=== PATIENT | male | born 1940 | race Asian ===

== ENCOUNTER 2019-01-16 02:13 | Inpatient (IN) | payer MEDICARE, OTHER ==
[~2019-01-16] VITALS: Ht 172.7 cm; Wt 35.4 kg
--- NOTE | 2019-01-16 02:20 | NUR ---
BIBA FOR C/O SUB STERNAL CP , NON- RADIATING. RATED 4/10. PT WAS PLACED ON A MONITOR ,
[2019-01-16] MEDS ORDERED: BISA10SU61 RC (02:27)
[2019-01-16] MEDS ORDERED: PROHEAL PO (02:27)
[2019-01-16] MEDS ORDERED: APIX2.5T PO (02:27)
[2019-01-16] MEDS ORDERED: ACET325T53 PO (02:27)
[2019-01-16] MEDS ORDERED: NA P133E RC (02:27)
[2019-01-16] MEDS ORDERED: MAGN400O21 PO (02:27)
[2019-01-16] MEDS ORDERED: MULT-213 PO (02:27)
[2019-01-16] MEDS ORDERED: ACET-2605 PO (02:27)
[2019-01-16] MEDS ORDERED: FERR325T24 PO (02:27)
[2019-01-16] MEDS ORDERED: SENN-168 PO (02:27)
[2019-01-16] MEDS ORDERED: DILTIAZEM HCL 50 MG IV IV ONE ×2 (02:30→03:30)
[2019-01-16] MEDS ORDERED: IV NS 0.9% 500 ML BAG IV ONE (02:30)
[2019-01-16] MEDS ORDERED: DILTIAZEM HCL 25 MG IV ONE (02:35)
[2019-01-16 02:39] LABS: BASOPHILS % (AUTO) 0.3 % (0.0-2.0); EOSINOPHILS % (AUTO) 0.2 % (0.0-6.0); HEMATOCRIT 28 % (39-51); HEMOGLOBIN 9.2 g/dL (13.5-17.5); LYMPHOCYTES % (AUTO) 35.6 % (20.0-44.0); MEAN CORPUSCULAR HGB CONC 33 g/dl (31.0-36.0); MEAN CORPUSCULAR VOLUME 96 fL (80-96); MONOCYTES # (AUTO) 0.5 /CMM (0.1-1.30); MONOCYTES % (AUTO) 4.6 % (2.0-12.0); NEUTROPHILS # (AUTO) 6.6 /CMM (1.8-8.9); NEUTROPHILS % (AUTO) 59.3 % (43.0-81.0); PLATELET COUNT (AUTO) 395 /CMM (150-450); RED BLOOD CELL COUNT(AUTO) 2.89 MIL/uL (4.5-6.0); WHITE BLOOD COUNT (AUTO) 11.2 K/uL (4.3-11.0)
[2019-01-16 02:49] LABS: CALCIUM, SERUM 7.7 mg/dL (8.5-10.1); CARBON DIOXIDE 17 mmol/L (21-32); CHLORIDE 107 mmol/L (98-107); CREATININE 2.3 mg/dL (0.6-1.3); GLUCOSE 166 mg/dL (74-106); POTASSIUM 2.9 mmol/L (3.5-5.1); SODIUM SERUM 141 mmol/L (136-145); UREA NITROGEN, BLOOD 27 mg/dL (7-18)
[2019-01-16 03:04] LABS: ALANINE AMINOTRANSFERASE 8 U/L (12-78); ALBUMIN 1.8 g/dL (3.4-5.0); ALKALINE PHOSPHATASE 108 U/L (46-116); ASPARTATE AMINOTRANSFERASE 18 U/L (15-37); B-TYPE NATRIURETIC PEPTIDE 65688 PG/ML (0-125); BILIRUBIN,DIRECT 0.1 mg/dL (0.0-0.2); BILIRUBIN,TOTAL 0.3 mg/dL (0.2-1.0); TOTAL PROTEIN, SERUM 7.5 g/dL (6.4-8.2)
--- NOTE | 2019-01-16 03:20 | NUR ---
PT W/ C/O SOB. CURRENTLY HOLDING O2 SAT OF 95-96% ON 3LOPM O2 AT HI. MADE AWARE W/ A NEW ORDER FOR BIPAP. RT WAS CALLED.
--- NOTE | 2019-01-16 03:34 | NUR ---
RT AT THE BED SIDE FOR BIPAP
--- NOTE | 2019-01-16 03:55 | NUR ---
PT NON- COMPLIANT WITH THE BIPAP. COMPLAINING THAT IT'S NOT COMFORTABLE AND TOOK IT OFF. THE RISK VS BENEFITS OF KEEPING TH BIPAP ON WERE EXPLAINED TO THE PT. STILL HE DOES NOT WANT IT. PT WAS PLACED BACK ON A NC AT 3LPM AND ON ONGOING MONITORING.
--- NOTE | 2019-01-16 04:28 | NUR ---
Patient is resting comfortably in bed with eyes closed. Easily aroused. VSS
--- NOTE | 2019-01-16 05:43 | NUR ---
pt in bed awake and alert. breathing evenly. O2 at 3 LPM via NC miriam well. no SOB. no c/o CP. VSS. will cont to monitor,
--- NOTE | 2019-01-16 05:49 | NUR ---
called warehouse engineer for tele bed
--- NOTE | 2019-01-16 06:23 | NUR ---
report given to Augustine on third floor for MILAGROS
[2019-01-16] MEDS ORDERED: Z GUARD REMEDY 2 OZ OINT TP PRN (06:30)
[2019-01-16] MEDS ORDERED: POTASSIUM CHLORIDE 20 MEQ TAB.PRT.SR PO ONE (06:30)
[2019-01-16] MEDS ORDERED: ACETAMINOPHEN 325 MG TABLET PO PRN (06:30)
[2019-01-16] MEDS ORDERED: DILTIAZEM HCL 50 MG IV IV PRN (06:30)
[2019-01-16] MEDS ORDERED: MAG HYDROX/AL HYDROX/SIMETH 30 ML UDC PO PRN (06:30)
[2019-01-16] MEDS ORDERED: MAGNESIUM HYDROXIDE 30 ML UDC PO PRN ×2 (06:30)
[2019-01-16] MEDS ORDERED: MORPHINE SULFATE INJ 2 MG/ML DISP.SYRIN IV PRN (06:30)
[2019-01-16] MEDS ORDERED: NA PHOS,M-B/NA PHOS,DI-BA 1 EA ENEMA RC PRN (06:30)
[2019-01-16] MEDS ORDERED: BISACODYL SUPP (10 MG) 10 MG/SUPP.RECT SUPP.RECT RC PRN (06:30)
[2019-01-16] MEDS ORDERED: HYDROCODONE/APAP 5/325MG 1 EACH TABLET PO PRN (06:30)
[2019-01-16] MEDS ORDERED: ONDANSETRON HCL/PF 4 MG/2 ML VIAL IVP PRN (06:30)
--- NOTE | 2019-01-16 06:38 | NUR ---
called lodging house keeper for LOU[facility] bed
--- NOTE | 2019-01-16 06:53 | NUR ---
[facility] BED ASSIGNMENT 116-2
[2019-01-16] MEDS ORDERED: DILTIAZEM HCL 25 MG IV IV PRN (07:02)
--- NOTE | 2019-01-16 07:16 | NUR ---
report given Martha at [facility]
--- NOTE | 2019-01-16 07:23 | NUR ---
dr Mccann at the bed side
--- NOTE | 2019-01-16 08:15 | NUR ---
transferred patient to [facility] via gurney accompanied by RN and emt in no apparent distress noted. Chaya RN at bedside to assume care.
--- NOTE | 2019-01-16 08:45 | NUR ---
RN NOTES RECEIVED PATIENT FROM ER VIA HODAN, PATIENT A/O X4, ABLE TO MAKE NEEDS KNOWN. WITH USE OF ACCESSORY MUSCLE ON BREATHING, WITH SOME COUGH: NON PRODUCTIVE. ON NASAL CANNULA OXYGEN AT 3LPM, SATING 95%. HEART RATE NOTED TO BE ELEVATED AT 121 AT THE MOMENT. PATIENT DENIES ANY KIND OF PAIN. PATIENT TRANSFERRED TO BED, VITAL SIGNS TAKE AND NOTED FOLLOWS BP AT 148/ 68, TEMP AT 98.8. SKIN ASSESSMENT DONE QUICKLY, MANAGER PRICING ATTACHED TO THE PATIENT. IV ACCESS NOTED ON THE LFA G 20: IN PLACE AND INTACT, FLUSHES WELL. PATIENT MADE COMFORTABLE AND WARMTH TO BED. ORIENTED TO UNIT AND USE OF CALL LIGHT, SAFETY MEASURES PUT IN PLACE, HOB ELEVATED, BED LOW AND LOCKED POSITION, CALL LIGHT WITHIN REACH. WILL CONTINUE TO MONITOR PATIENT AND CARRY OUT ADMITTING ORDERS SEASONAL GREENERY BUNDLER AT THE UNIT AT THIS TIME FOR BLOOD DRAW BUT PATIENT REFUSED. RISK AND BENEFITS DISCUSSED WITH THE PATIENT BUT PATIENT STILL REFUSED "I DON'T LIKE, THEY ALREADY GOT A LOT OF BLOOD LAST TIME. DON'T FORCE ME"
[2019-01-16] MEDS ORDERED: ASPIRIN 325 MG TABLET PO SCH (09:00)
[2019-01-16] MEDS ORDERED: IV NS 0.9% 250 ML IV ONE (09:00)
[2019-01-16] MEDS ORDERED: APIXABAN 2.5 MG TABLET PO SCH (09:00)
[2019-01-16] MEDS: POTASSIUM CL. PREMIX PERIPHER. 50 ML IV SCH ×5 (09:02→15:21)
[2019-01-16] MEDS: CARVEDILOL 3.125 MG TABLET PO SCH ×2 (09:02→21:34)
[2019-01-16] MEDS: MULTIVIT W/MINERALS 1 TAB TABLET PO SCH (09:02)
[2019-01-16] MEDS: FERROUS SULFATE (325 MG) 325 MG/TAB TABLET PO SCH (09:02)
--- NOTE | 2019-01-16 09:15 | NUR ---
RN NOTES OLMAN (BRADDISHER STUDENT) FOR HUE CRISOSTOMO AT THE UNIT. INFORMED LATER THAT PATIENT REFUSED BLOOD DRAW
--- NOTE | 2019-01-16 09:45 | NUR ---
RN NOTES RECEIVED ORDERS FRO DR. JAUREGUI, PATIENT ASKED AGAIN IF READY FOR BLOOD DRAW BUT PATIENT STILL REFUSING. REDISCUSSED RISK AND BENEFIT. ALSO INFORMED PATIENT TO LET US KNOW WHEN HE IS READY. I ALSO OFFERED TO DRAW BLOOD MYSELF BUT PATIENT STILL REFUSED
[2019-01-16] MEDS ORDERED: ALBUTEROL FS 2.5 MG/3 ML VIAL.NEB NEB PRN (10:00)
[2019-01-16] MEDS ORDERED: DILTIAZEM HCL 30 MG TABLET PO PRN (10:00)
[2019-01-16] MEDS: FUROSEMIDE 40 MG/4 ML VIAL IV SCH ×3 (10:07→17:58)
--- NOTE | 2019-01-16 10:17 | NUR ---
RN NOTES PATIENT TRANSFERRED TO [facility] ([id number]) BY BED VIA ACLS PROTOCOL. REPORT GIVEN AT BEDSIDE TO DEJAH. PATIENT ASKED ONCE MORE IF HE IS READY FOR BLOOD DRAW BUT HE STILL REFUSES. HANDS OFF
--- NOTE | 2019-01-16 10:30 | NUR ---
tele limnologist: notes received this 78 year old male pt from [facility] unit via bed, pt is awake, a/ox3. no c/o pain or any discomfort. place tele vair=230. oriented to room and surroundings. pt received cardizem po per report this morning. placed pt on airborne isolation to r/o tb. pt refused due labs this morning per report. pt refused skin assessment. iv potassium continued on floor, pt c/o burning sensation, ice pack applied. in no apparent distress noted. will continue to monitor.
[2019-01-16 10:35] VITALS: BP 129/79
[2019-01-16 11:00] VITALS: BP 129/78
[2019-01-16 11:02] LABS: ABG BASE EXCESS -5.3 mmol/L; ABG OXYGEN SATURATION 95.7 % (92.0-98.5); ABG PCO2 19.6 mmHg (35.0-45.0); ABG PH 7.532 (7.350-7.450); ABG PO2 81.2 mmHg (75.0-100.0); AaDO2 95.3 mmHg; COHb 0.2 % (0.5-1.5); MetHb 0.5 % (0.0-1.5); SITE, ABG Right Radial
--- NOTE | 2019-01-16 11:15 | NUR ---
tele financial health counselor: notes abg resulted and showed result to lauren (acnp) with no new order.
[2019-01-16] MEDS: ENSURE ENLIVE 237 ML LIQUID (VANILLA) PO SCH ×2 (11:52→16:31)
[2019-01-16 12:00] VITALS: BP 114/66
--- NOTE | 2019-01-16 12:30 | NUR ---
m/s hemp fiber taker off: cardio consult dr. hewitt and dr. saba at bedside and discussing the need for angiogram, but pt is hesitant and wants to think about it and will not sign the consent at this time. dr. hewitt instructed pt and primary nurse not to eat or drink after midnight and will call in the morning to f/u. pt verbalized understanding. potassium chloride 10meq ivpb infusing slow rate due to c/o burning sensation to site despite ice pack in place. instructed to call for assistance. will continue to monitor.
[2019-01-16 13:08] LABS: IRON, SERUM 58 ug/dl (50-175); TOTAL IRON BINDING CAPACITY 151 ug/dl (250-450)
[2019-01-16 13:23] LABS: MAGNESIUM 1.4 mg/dL (1.8-2.4); PHOSPHORUS 5.2 mg/dL (2.5-4.9)
[2019-01-16 13:36] LABS: CHOLESTEROL 102 mg/dL (<200); FERRITIN 517 ng/mL (8-388); HDL CHOLESTEROL 39 mg/dL (40-60); LDL 61 mg/dL (0-99); TRIGLYCERIDES 82 mg/dL (30-150)
--- NOTE | 2019-01-16 14:10 | NUR ---
tele loop cutter: notes lab called re: troponin result=0.916. result trending down. pt resting comfortable. will continue to monitor. Addendum: 01/16/19 at 1457 by DEJAH MCCORD METROLOGY ENGINEER tele afib controlled 90's at this time. will monitor.
[2019-01-16 15:16] LABS: THYROID STIMULATING HORMONE < 0.007 uIU/mL (0.358-3.74)
--- NOTE | 2019-01-16 15:21 | NUR ---
tele steam brush operator: notes #5 potassium chloride ivpb given by rn at this time. instructed to call for assistance. will continue to monitor.
[2019-01-16] MEDS ORDERED: POTASSIUM CL. PREMIX PERIPHER. 50 ML IV SCH (15:30)
[2019-01-16] MEDS ORDERED: POTASSIUM CHLORIDE 10 MEQ/50 ML PREMIXED IVPB FOR PERIPHERAL LINE IV ONE (15:30)
[2019-01-16 16:00] VITALS: BP 97/62
--- NOTE | 2019-01-16 16:00 | NUR ---
tele liability claims adjuster: notes pt refused pm care when staff offered. pt also refused linen change. airborne isolation precaution maintained. instructed to call for assistance.
[2019-01-16] MEDS: DILTIAZEM HCL 30 MG TABLET PO PRN (16:31)
--- NOTE | 2019-01-16 18:10 | NUR ---
tele formulation technician: notes troponin trending down= 0.797 at this time. remains on airborne isolation r/o tb. needs attended. instructed to call for assistance. will continue to monitor.
--- NOTE | 2019-01-16 19:05 | NUR ---
tele almond paste molder: notes bedside report given to jordy (arcelia) for continuity of care.
[2019-01-16 20:00] VITALS: BP_SYST 102
--- NOTE | 2019-01-16 20:00 | NUR ---
DRILL PRESS TENDER OPENING NOTES RECEIVED PT IN BED, AWAKE ALERT ORIENTED X4. BREATHING EVEN AND UNLABORED ON ROOM AIR. REMAINS UNDER AIRBORNE ISOLATION TO R/O TB. ROTARY ADJUSTER IN PLACE NO COMPLAINT OF PAIN OR DISCOMFORT AT THIS TIME. IV ACCESS ON THE L FA 20G. BED IN LOWEST LOCKED POSITION, CALL LIGHT WITHIN REACH AT ALL TIMES. WILL CONTINUE TO MONITOR FREQUENTLY
[2019-01-16] MEDS: SENNOSIDES 8.6 MG TABLET PO SCH (21:34)
[2019-01-16] MEDS: ATORVASTATIN 10 MG TABLET PO SCH (21:34)
[2019-01-17] MEDS: DILTIAZEM HCL 30 MG TABLET PO PRN (03:58)
[2019-01-17 04:00] VITALS: BP 147/108
--- NOTE | 2019-01-17 06:02 | NUR ---
MARITIME ENGINEER CLOSING NOTES PT REMAINS IN BED, SLEEPING, EASILY AROUSED TO NAME CALL. REFUSED LAB DRAW. PHLEB TO TRY AGAIN LATER. BREATHING EVEN AND UNLABORED ON ROOM AIR. REMAINS UNDER AIRBORNE ISOLATION TO R/O TB. COMPUTER SCIENCE PROFESSOR IN PLACE SR IN THE 110s NO COMPLAINT OF PAIN OR DISCOMFORT AT THIS TIME. IV ACCESS ON THE L FA 20G. BED IN LOWEST LOCKED POSITION, CALL LIGHT WITHIN REACH AT ALL TIMES. WILL ENDORSE TO DAY NURSE FOR MILAGROS
--- NOTE | 2019-01-17 07:20 | NUR ---
RN OPENING NOTES REPORT RECEIVED FROM HEEL PACKER RN. PT IS ASLEEP IN BED. EQUAL CHEST RISE AND FALL BILATERALLY. BED IS LOCKED AND IN LOWEST POSITION. PT DENIES PAIN AT PRESENT MOMENT WILL CONTINUE TO MONITOR.
[2019-01-17 08:15] VITALS: BP 143/88
[2019-01-17] MEDS: FERROUS SULFATE (325 MG) 325 MG/TAB TABLET PO SCH (08:47)
[2019-01-17] MEDS: CARVEDILOL 12.5 MG TABLET PO SCH ×2 (08:47→21:29)
[2019-01-17] MEDS: MULTIVIT W/MINERALS 1 TAB TABLET PO SCH (08:48)
[2019-01-17] MEDS: ASPIRIN EC 81 MG TABLET.DR PO SCH (08:48)
[2019-01-17] MEDS: APIXABAN 2.5 MG TABLET PO SCH ×2 (08:49→16:23)
[2019-01-17] MEDS: ENSURE ENLIVE 237 ML LIQUID (VANILLA) PO SCH ×3 (08:53→16:22)
[2019-01-17] MEDS ORDERED: APIXABAN 5 MG TABLET PO SCH (09:00)
--- NOTE | 2019-01-17 10:17 | NUR ---
PT REFUSING TESTS STATES HE DOES NOT WANT TO DO IT AND REFUSES TO GIVE AN ANSWER.
[2019-01-17] MEDS: METHIMAZOLE (5MG) 5 MG TABLET PO SCH (11:00)
[2019-01-17 11:06] LABS: *SPE A/G RATIO 0.5 (0.7-1.7); *SPE ALBUMIN 2.1 g/dL (2.9-4.4); *SPE ALPHA-1-GLOBULIN 0.3 g/dL (0.0-0.4); *SPE ALPHA-2-GLOBULIN 0.9 g/dL (0.4-1.0); *SPE GLOBULIN, TOTAL 3.9 g/dL (2.2-3.9); *SPE M-SPIKE Not Observed g/dL (Not Observed); *SPEGAMMA GLOBULIN 1.8 g/dL (0.4-1.8)
[2019-01-17 12:00] VITALS: BP 117/62
--- NOTE | 2019-01-17 15:50 | NUR ---
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
[2019-01-17 16:00] VITALS: BP_SYST 121; BP_SYST 140; BP_DIAS 68; BP_DIAS 69
[2019-01-17 16:51] LABS: BASOPHILS % (AUTO) 0.2 % (0.0-2.0); HEMATOCRIT 26 % (39-51); HEMOGLOBIN 8.8 g/dL (13.5-17.5); LYMPHOCYTES # (AUTO) 1.9 /CMM (0.8-4.8); LYMPHOCYTES % (AUTO) 20.8 % (20.0-44.0); MEAN CORPUSCULAR HGB CONC 34 g/dl (31.0-36.0); MEAN CORPUSCULAR VOLUME 95 fL (80-96); MONOCYTES # (AUTO) 0.5 /CMM (0.1-1.30); MONOCYTES % (AUTO) 5.6 % (2.0-12.0); NEUTROPHILS # (AUTO) 6.8 /CMM (1.8-8.9); NEUTROPHILS % (AUTO) 73.4 % (43.0-81.0); PLATELET COUNT (AUTO) 319 /CMM (150-450); RED BLOOD CELL COUNT(AUTO) 2.71 MIL/uL (4.5-6.0); WHITE BLOOD COUNT (AUTO) 9.2 K/uL (4.3-11.0)
[2019-01-17 17:24] LABS: ALANINE AMINOTRANSFERASE 314 U/L (12-78); ALBUMIN 1.8 g/dL (3.4-5.0); ALKALINE PHOSPHATASE 94 U/L (46-116); ASPARTATE AMINOTRANSFERASE 833 U/L (15-37); BILIRUBIN,TOTAL 0.4 mg/dL (0.2-1.0); CARBON DIOXIDE 18 mmol/L (21-32); CHLORIDE 110 mmol/L (98-107); CREATININE 2.9 mg/dL (0.6-1.3); GLUCOSE 105 mg/dL (74-106); MAGNESIUM 1.7 mg/dL (1.8-2.4); PHOSPHORUS 6.4 mg/dL (2.5-4.9); POTASSIUM 4.4 mmol/L (3.5-5.1); SODIUM SERUM 143 mmol/L (136-145); TOTAL PROTEIN, SERUM 6.7 g/dL (6.4-8.2); UREA NITROGEN, BLOOD 61 mg/dL (7-18)
--- NOTE | 2019-01-17 18:17 | NUR ---
TROPONIN CRITICAL LAB CALLED IN . SPOKE TO DR. MALLORY WHO WENT IN TO SPEAK WITH THE PT ABOUT DOING THE HEART CATH PROCEDURE. PT STILL REFUSING, RISKS EXPLAINED TO PT STILL REFUSING TO DO PROCEDURE. MD PRESENT DURING REFUSAL.
--- NOTE | 2019-01-17 18:29 | NUR ---
PT STILL REFUSING TO EAT DINNER. DRANK HALF OF ENSURE BUT THEN SAID HE DID NOT WANT ANYMORE. PT STATED HE JUST WANTED TO SLEEP.
--- NOTE | 2019-01-17 18:30 | NUR ---
RN CLOSING NOTES PT IS IN BED AWAKE. BED IS IN LOWEST AND LOCKED POSITION WITH CALL LIGHT AT BEDSIDE. PT IS ON ISOLATION FOR POSSIBLE TB BUT DID TEST POSITIVE FOR MRSA OF NARES. PT IS A&OX3 AND IS A-FIB ON MONITOR 80S. PT IS REFUSING TO EAT MEALS AND REFUSING PROCEDURES. PT WAS MADE AWARE OF RISKS BY MD, STILL REFUSES. WILL ENDORSE CONTINUATION OF CARE TO TECHNICAL SUPPORT PROFESSIONAL RN.
--- NOTE | 2019-01-17 19:08 | NUR ---
PATIENT SUPPORT SPECIALIST NOTE RECEIVED PT IN STABLE CONDITION A/O X3, CURRENTLY IN BED RESTING. NO SIGNS OF SOB OR DISTRESS, NO INDICATIONS OF PAIN. TELE MONITOR READING A.FIB 66. IV IN L FA #[address] S/L. ALL CURRENT NEEDS ATTENDED TO. BED LOW, LOCKED, UPPER RAILS UP, AND CALL LIGHT WITHIN REACH. WILL CONT. TO MONITOR.
--- NOTE | 2019-01-17 20:00 | NUR ---
HOT PIPE GAUGER NOTE PT REFUSING 2000 VITALS, WILL TRY AGAIN IN 1 HR.
[2019-01-17 20:21] LABS: CREATINE KINASE, TOTAL 349 U/L (39-308)
[2019-01-17 20:22] LABS: THYROID STIMULATING HORMONE < 0.007 uIU/mL (0.358-3.74)
[2019-01-17 21:15] LABS: FERRITIN 1107 ng/mL (8-388)
[2019-01-17] MEDS: SENNOSIDES 8.6 MG TABLET PO SCH (21:28)
[2019-01-17] MEDS: MIRTAZAPINE 15 MG TABLET PO SCH (21:28)
[2019-01-17] MEDS: ATORVASTATIN 10 MG TABLET PO SCH (21:28)
[2019-01-17] MEDS: MUPIROCIN OINT 2% 22 GM TUBE SCH (21:39)
[2019-01-18] VITALS: BP 107/63
--- NOTE | 2019-01-18 05:11 | NUR ---
CALCIMINER NOTE ATTEMPTED TO CLEAN AND CHANGE PT LINEN. PT IS SCREAMING CURSE WORDS, AND TRYING TO KICK STAFF. PT ALSO DECLINING TELE MONITOR, STATES THAT HE WILL JUST REMOVE THEM WHEN WE LEAVE. WILL LET CHARGE NURSE IMMANUEL KNOW.
--- NOTE | 2019-01-18 06:21 | NUR ---
MS RN NOTE PT REFUSING AM LABS TO BE DRAWN, RISKS AND BENEFITS MADE AWARE. LAB WILL TRY AGAIN LATER.
[2019-01-18 07:06] LABS: *SPE A/G RATIO 0.5 (0.7-1.7); *SPE ALPHA-1-GLOBULIN 0.3 g/dL (0.0-0.4); *SPE ALPHA-2-GLOBULIN 0.8 g/dL (0.4-1.0); *SPE GLOBULIN, TOTAL 3.9 g/dL (2.2-3.9); *SPE M-SPIKE Not Observed g/dL (Not Observed); *SPEGAMMA GLOBULIN 1.8 g/dL (0.4-1.8)
--- NOTE | 2019-01-18 07:11 | NUR ---
BOWLING BALL ASSEMBLER NOTES PATIENT IN BED ALERT ORIENTED X 3. NO ACUTE DISTRESS NOTED. BREATHING UNLABORED. IV ACCESS PATENT AND INTACT, NO REDNESS OR SWELLING NOTED. SAFETY MEASURES IN PLACE. CALL LIGHT WITHIN REACH. WILL CONTINUE TO MONITOR ACCORDINGLY.
[2019-01-18 08:00] VITALS: BP 120/62
[2019-01-18] MEDS: ENSURE ENLIVE 237 ML LIQUID (VANILLA) PO SCH ×3 (09:00→17:14)
[2019-01-18] MEDS: METHIMAZOLE (5MG) 5 MG TABLET PO SCH (09:00)
[2019-01-18] MEDS: CARVEDILOL 12.5 MG TABLET PO SCH ×2 (09:00→21:41)
[2019-01-18] MEDS: APIXABAN 2.5 MG TABLET PO SCH ×2 (09:00→17:14)
[2019-01-18] MEDS: ASPIRIN EC 81 MG TABLET.DR PO SCH (09:00)
[2019-01-18] MEDS: FERROUS SULFATE (325 MG) 325 MG/TAB TABLET PO SCH (09:00)
[2019-01-18] MEDS: MUPIROCIN OINT 2% 22 GM TUBE SCH ×3 (09:00→21:48)
[2019-01-18] MEDS: MULTIVIT W/MINERALS 1 TAB TABLET PO SCH (09:00)
--- NOTE | 2019-01-18 09:00 | NUR ---
ARSON AND BOMB INVESTIGATOR NOTES PATIENT STRONGLY REFUSED TO CLEANED AND LINEN CHANGE AT THIS TIME DESPITE OF EXPLANATION OF RISKS AND BENEFITS.
--- NOTE | 2019-01-18 09:09 | NUR ---
INVESTOR RELATIONS SPECIALIST NOTES SEEN AND EVALUATED BY Adonis Carbajal, patient for cardiac cath patient agreed. Adonis Carbajal with new orders for NPO EXCEPT MEDICATIONS AND HOLD ELIQUIS AND ASPIRIN. NOTED AND CARRIED OUT.
--- NOTE | 2019-01-18 09:15 | NUR ---
INORGANIC CHEMICAL TECHNICIAN NOTED EKG DONE BY RT, RESULT SEEN BY DR CONLEY. NO NEW ORDERS MADE AT THIS TIME.
--- NOTE | 2019-01-18 09:45 | NUR ---
MS RN NOTES PATIENT REFUSED AM MEDICATIONS, MEDICATIONS WASTED.
--- NOTE | 2019-01-18 09:55 | NUR ---
MS RN NOTES PATIENT SEEN BY Ron Smith WANTS EKG REPEATED BY RT.
--- NOTE | 2019-01-18 10:00 | NUR ---
MS RN NOTES FOLLOWED UP WITH RT REGARDING EKG, SAID HE WILL BE HERE JANIE.
--- NOTE | 2019-01-18 11:15 | NUR ---
WOOD CHOPPER NOTES EKG REPEATED BY RT RESULT SEEN BY Adonis Carbajal.
--- NOTE | 2019-01-18 11:20 | NUR ---
LICENSED PHARMACIST NOTES PATIENT SEEN AGAIN BY Adonis Carbajal, patient changed his mind to do cardiac cath despite of explanation of risks and benefits. Aodnis Carbajal with new orders for to resume previous diet cardiac soft and give ELIQUIS AND ASPIRIN. NOTED AND CARRIED OUT.
--- NOTE | 2019-01-18 11:25 | NUR ---
PAVING BLOCK CUTTER NOTES PATIENT REFUSED ELIQUIS AND ASPIRIN DESPITE OF EXPLANATION OF RISKS AND BENEFITS RIRI JOSEPH AWARE.
[2019-01-18 13:30] LABS: BASOPHILS % (AUTO) 0.1 % (0.0-2.0); EOSINOPHILS % (AUTO) 0.1 % (0.0-6.0); HEMATOCRIT 31 % (39-51); HEMOGLOBIN 10.5 g/dL (13.5-17.5); LYMPHOCYTES # (AUTO) 1.7 /CMM (0.8-4.8); LYMPHOCYTES % (AUTO) 16.3 % (20.0-44.0); MEAN CORPUSCULAR HGB CONC 34 g/dl (31.0-36.0); MEAN CORPUSCULAR VOLUME 96 fL (80-96); MONOCYTES # (AUTO) 0.6 /CMM (0.1-1.30); MONOCYTES % (AUTO) 5.4 % (2.0-12.0); NEUTROPHILS % (AUTO) 78.1 % (43.0-81.0); PLATELET COUNT (AUTO) 363 /CMM (150-450); RED BLOOD CELL COUNT(AUTO) 3.28 MIL/uL (4.5-6.0); WHITE BLOOD COUNT (AUTO) 10.3 K/uL (4.3-11.0)
[2019-01-18 13:41] LABS: CALCIUM, SERUM 7.9 mg/dL (8.5-10.1); CARBON DIOXIDE 19 mmol/L (21-32); CHLORIDE 110 mmol/L (98-107); CREATININE 3.4 mg/dL (0.6-1.3); GLUCOSE 119 mg/dL (74-106); POTASSIUM 4.9 mmol/L (3.5-5.1); SODIUM SERUM 142 mmol/L (136-145)
[2019-01-18 14:07] LABS: PTH, INTACT 87 pg/mL (15-65)
[2019-01-18 14:07] LABS: MAGNESIUM 1.8 mg/dL (1.8-2.4)
[2019-01-18 14:16] LABS: UREA NITROGEN, BLOOD 86 mg/dL (7-18)
--- NOTE | 2019-01-18 14:20 | NUR ---
FLASK CLEANER NOTES RECEIVED CRITICAL LABORATORY RESULTS, BUN 86, TROPONIN 12.452, NOTIFIED DR SUELLEN CRISOSTOMO DNP , NO NEW ORDERS MADE AT THIS TIME.
[2019-01-18 15:45] VITALS: BP 111/51
--- NOTE | 2019-01-18 18:50 | NUR ---
Patient was combative and refused echocardiogram. Informed attending RN (Marya).
--- NOTE | 2019-01-18 19:00 | NUR ---
CONTINUOUS IMPROVEMENT CONSULTANT NOTES PATIENT IN BED ALERT ORIENTED X 3. NO ACUTE DISTRESS NOTED. BREATHING UNLABORED. IV ACCESS PATENT AND INTACT, NO REDNESS OR SWELLING NOTED. PATIENT REFUSED TO BE CLEANED AND LINEN CHANGED IN AM BUT AGREED IN THE AFTERNOON. SAFETY MEASURES IN PLACE. CALL LIGHT WITHIN REACH. WILL ENDORSE TO NIGHT NURSE FOR CONTINUITY OF CARE.
--- NOTE | 2019-01-18 19:15 | NUR ---
BICYCLE MECHANIC NOTES RECEIVED PT IN BED AND AWAKE. PT A/O X2-3. RESPIRATIONS EVEN AND UNLABORED WITH NO S/S OF ACUTE DISTRESS OR SOB NOTED. IV ACCESS PATENT AND INTACT, NO REDNESS OR SWELLING NOTED AND SL. SAFETY MEASURES IN PLACE WITH BED IN LOWEST LOCKED POSITION WITH SIDE RAILS UP X2. CALL LIGHT WITHIN REACH. WILL CONTINUE TO MONITOR.
[2019-01-18 20:00] VITALS: BP 132/87
[2019-01-18] MEDS: MIRTAZAPINE 15 MG TABLET PO SCH (21:41)
[2019-01-18] MEDS: SENNOSIDES 8.6 MG TABLET PO SCH (21:41)
--- NOTE | 2019-01-19 05:47 | NUR ---
HEEL SLUGGER NOTES PT REFUSED MORNING LABS. LAB WILL SEND ANOTHER TECH TO RETRY LAB DRAW.
--- NOTE | 2019-01-19 06:17 | NUR ---
RT NOTE EKG ATTEMPTED. PATIENT NONCOMPLIANT. RN AWARE.
--- NOTE | 2019-01-19 07:35 | NUR ---
READING AIDE OPENING NOTES RECEIVED PT AWAKE IN BED IN NO ACUTE SIGNS OF DISTRESS. A/O X 2-3. VERBALLY RESPONSIVE, DENIES PAIN OR ANY DISCOMFORTS AT THIS TIME. ISOLATION PRECAUTIONS MAINTAINED. ON ROOM AIR, BREATHING EVEN AND UNLABORED. PT REFUSED TELEMONITORING DESPITE EXPLAINING RISKS AND BENEFITS. NO IV ACCESS NOTED, PT REFUSED TO INSERT ONE. SAFETY MEASURES IN PLACE. BED IN LOW LOCKED POSITION WITH SR UP X2. CALL LIGHT WITHIN REACH. WILL CONTINUE TO MONITOR ACCORDINGLY.
--- NOTE | 2019-01-19 08:06 | NUR ---
SOLUTIONS ENGINEER NOTES PT IN BED AND AWAKE. PT A/O X2-3. RESPIRATIONS EVEN AND UNLABORED WITH NO S/S OF ACUTE DISTRESS OR SOB NOTED THROUGHOUT SHIFT. SAFETY MEASURES IN PLACE WITH BED IN LOWEST LOCKED POSITION WITH SIDE RAILS UP X2. CALL LIGHT WITHIN REACH. WILL ENDORSE TO ONCOMING NURSE FOR MILAGROS.
[2019-01-19 08:36] VITALS: BP 105/63
[2019-01-19] MEDS: ENSURE ENLIVE 237 ML LIQUID (VANILLA) PO SCH ×3 (08:55→17:10)
[2019-01-19] MEDS: MULTIVIT W/MINERALS 1 TAB TABLET PO SCH (08:55)
[2019-01-19] MEDS: FERROUS SULFATE (325 MG) 325 MG/TAB TABLET PO SCH (08:55)
[2019-01-19] MEDS: METHIMAZOLE (5MG) 5 MG TABLET PO SCH (08:56)
[2019-01-19] MEDS: ASPIRIN EC 81 MG TABLET.DR PO SCH (08:56)
[2019-01-19] MEDS: CARVEDILOL 12.5 MG TABLET PO SCH ×2 (09:00→23:16)
[2019-01-19] MEDS: MUPIROCIN OINT 2% 22 GM TUBE SCH ×3 (09:04→23:18)
--- NOTE | 2019-01-19 10:27 | NUR ---
RN NOTES PT SEEN BY DR CRISOSTOMO. INFORMED THAT PT REFUSED TELEMONITORING, BLOOD WORKS AND TO INSERT NEW IV ACCESS LINE. WILL CONTINUE TO MONITOR.
--- NOTE | 2019-01-19 10:38 | NUR ---
RN NOTES PT SEEN AND EVALUATED BY CORE FITTER WITH RECOMMENDATION TO CHANGE DIET FROM CARDIAC TO REGULAR DIET. DR CRISOSTOMO MADE AWARE IN AGREEMENT. WILL CONTINUE TO MONITOR.
--- NOTE | 2019-01-19 11:52 | NUR ---
WOUND CARE CONSULT: RECEIVED WOUND CONSULT FOR ABRASION TO LEFT BUTTOCK. PT ADAMANTLY REFUSED SKIN ASSESSMENT AND YELLED " DO NOT TOUCH ME. YOU CANNOT FORCE ME". REVIEWED PHOTO DOCUMENTATION WITH NURSING STAFF. RECOMMENDATIONS MADE FOR WOUND CARE BASED ON PHOTO AND NURSING DOCUMENTATION. WILL SEE PRN. DIAZ IN AGREEMENT WITH PLAN OF CARE.
--- NOTE | 2019-01-19 12:00 | NUR ---
RN NOTES WOUND NURSE BRANDON CAME TO ASSESS PT'S SKIN BUT PT REFUSED SKIN ASSESSMENT AND YELLED " DON'T TOUCH ME AND DON'T' FORCE ME". WOUND CARE RECOMMENDATION DONE BY BRANDON. WILL CONTINUE TO MONITOR.
--- NOTE | 2019-01-19 13:27 | NUR ---
HAILEY contacted Baljit at [facility] to inquire if pt. has any family. Per Baljit, pt. is self responsible. Only contact he had was of a friend Blake . Addendum: 01/19/19 at 1330 by AUGUSTO HART HAILEY updated Dr. Durham with aforementioned information.
--- NOTE | 2019-01-19 14:12 | NUR ---
RN NOTES PT SEEN BY DR CALDERON WITH ORDER TO DO U/S GUIDED THORACENTESIS OF RIGHT LUNG. PROCEDURE EXPLAINED TO PT AND VERBALIZED UNDERSTANDING. CONSENT SIGNED AND FILED IN CHART. WILL CONTINUE TO MONITOR.
--- NOTE | 2019-01-19 15:04 | NUR ---
RN NOTES RECEIVED CALL FROM Yo AND INFORMED THAT PT HAS HIGH LEVEL CK MP 34.4. DR CRISOSTOMO MADE AWRE. NO NEW ORDER MADE AT THIS TIME.
[2019-01-19 15:32] VITALS: BP 123/67
--- NOTE | 2019-01-19 18:34 | NUR ---
MS RN CLOSING NOTES PT IN BED AWAKE AND RESTING AT MODERATE HIGH BACKREST POSITION. A/O X 2-3 AND VERBALLY RESPONSIVE. ISOLATION PRECAUTIONS MAINTAINED. ON ROOM AIR, TOLERATING WELL WITH NO SOB NOTED. PT REMAINS REFUSING TO INSERT IV ACCESS, AWARE. PT FOR U/S GUIDED THORACENTESIS TOMORROW, CONSENT IN THE CHART. ALL SAFETY MEASURES KEPT IN PLACE. BED IN LOW LOCKED POSITION WITH SR UP X2. CALL LIGHT WITHIN EASY REACH OF PT. WILL ENDORSE TO ORACLE SQL DEVELOPER NURSE FOR MILAGROS
--- NOTE | 2019-01-19 19:45 | NUR ---
MS RN OPENING NOTES RECEIVED PATIENT IN BED AWAKE AND RESTING AT MODERATE HIGH BACKREST POSITION. A/O X 2-3 AND VERBALLY RESPONSIVE. ISOLATION PRECAUTIONS MAINTAINED. ON ROOM AIR, TOLERATING WELL WITH NO SOB NOTED. COOPERATIVE AT THIS TIME.PT FOR U/S GUIDED THORACENTESIS TOMORROW, CONSENT IN THE CHART. ENDORSED BY AM NURSE,ALL SAFETY MEASURES KEPT IN PLACE. BED IN LOW LOCKED POSITION WITH SR UP X2. CALL LIGHT WITHIN EASY REACH OF PT. WILL CONTINUE TO MONITOR ACCORDINGLY.
[2019-01-19 23:00] VITALS: BP 127/71
[2019-01-19] MEDS: MIRTAZAPINE 15 MG TABLET PO SCH (23:16)
[2019-01-19] MEDS: SENNOSIDES 8.6 MG TABLET PO SCH (23:16)
[2019-01-20 06:29] LABS: BASOPHILS % (AUTO) 0.2 % (0.0-2.0); EOSINOPHILS % (AUTO) 0.6 % (0.0-6.0); HEMATOCRIT 31 % (39-51); HEMOGLOBIN 10.1 g/dL (13.5-17.5); LYMPHOCYTES % (AUTO) 24.6 % (20.0-44.0); MEAN CORPUSCULAR HGB CONC 33 g/dl (31.0-36.0); MEAN CORPUSCULAR VOLUME 97 fL (80-96); MONOCYTES # (AUTO) 0.9 /CMM (0.1-1.30); MONOCYTES % (AUTO) 11.2 % (2.0-12.0); NEUTROPHILS # (AUTO) 5.2 /CMM (1.8-8.9); NEUTROPHILS % (AUTO) 63.4 % (43.0-81.0); PLATELET COUNT (AUTO) 313 /CMM (150-450); RED BLOOD CELL COUNT(AUTO) 3.15 MIL/uL (4.5-6.0); WHITE BLOOD COUNT (AUTO) 8.2 K/uL (4.3-11.0)
[2019-01-20 06:53] LABS: ALANINE AMINOTRANSFERASE 138 U/L (12-78); ALBUMIN 1.9 g/dL (3.4-5.0); ALKALINE PHOSPHATASE 97 U/L (46-116); ASPARTATE AMINOTRANSFERASE 102 U/L (15-37); BILIRUBIN,TOTAL 0.4 mg/dL (0.2-1.0); CALCIUM, SERUM 7.8 mg/dL (8.5-10.1); CARBON DIOXIDE 20 mmol/L (21-32); CHLORIDE 113 mmol/L (98-107); CREATININE 2.7 mg/dL (0.6-1.3); GLUCOSE 109 mg/dL (74-106); POTASSIUM 5.2 mmol/L (3.5-5.1); SODIUM SERUM 146 mmol/L (136-145); TOTAL PROTEIN, SERUM 6.9 g/dL (6.4-8.2)
[2019-01-20 06:54] LABS: UREA NITROGEN, BLOOD 90 mg/dL (7-18)
--- NOTE | 2019-01-20 07:23 | NUR ---
MS RN CLOSING NOTES PATIENT AWAKE IN BED RESTING AT MODERATE HIGH BACKREST POSITION. ALERT ORIENTED X 2-3 AND VERBALLY RESPONSIVE. ISOLATION PRECAUTIONS MAINTAINED. ON ROOM AIR, TOLERATING WELL WITH NO SOB NO APPARENT DISTRESS NOTED, ALL SAFETY MEASURES KEPT IN PLACE. BED IN LOW LOCKED POSITION WITH SR UP X2. CALL LIGHT WITHIN EASY REACH, ALL NEEDS ATTENDED, WILL CONTINUE TO MONITOR ACCORDINGLY.
--- NOTE | 2019-01-20 07:27 | NUR ---
MS RN CLOSING NOTES PATIENT FOR U/S GUIDED THORACENTESIS TODAY, CONSENT IN THE CHART. ALL SAFETY MEASURES KEPT IN PLACE. BED IN LOW LOCKED POSITION WITH SR UP X2. CALL LIGHT WITHIN EASY REACH OF PT. ENDORSED TO AM NURSE FOR CONTINUITY OF CARE.
--- NOTE | 2019-01-20 07:27 | NUR ---
MS RN OPENING NOTE RECEIVED PATIENT SLEEPING IN BED RESTING COMFORTABLY. PATIENT BREATHING ON ROOM AIR. PATIENT IN NO ACUTE DISTRESS. NO SOB NOTED. PATIENT BREATHING IS EVEN AND UNLABORED. NO FACIAL GRIMACING NOTED. PATIENT MAINTAINED ON ISOLATION PRECAUTIONS. NO IV ACCESS NOTED. SAFETY PRECAUTIONS IN PLACE. PATIENT BED IS LOCKED AND IN LOWEST POSITION. CALL LIGHT WITHIN REACH. WILL CONTINUE TO MONITOR.
[2019-01-20 08:00] VITALS: BP 130/77
--- NOTE | 2019-01-20 08:45 | NUR ---
MS RN NOTE PATIENT CRITICAL LAB VALUE LEVEL 90 BUN. NO CALL BACK FROM LAB. SUELLEN CRISOSTOMO MADE AWARE. NO NEW ORDERS AT THIS TIME. WILL CONTINUE TO MONITOR.
[2019-01-20] MEDS: FERROUS SULFATE (325 MG) 325 MG/TAB TABLET PO SCH (09:00)
[2019-01-20] MEDS: MULTIVIT W/MINERALS 1 TAB TABLET PO SCH (09:00)
[2019-01-20 09:21] VITALS: BP 130/77
[2019-01-20] MEDS: ASPIRIN EC 81 MG TABLET.DR PO SCH (09:21)
[2019-01-20] MEDS: METHIMAZOLE (5MG) 5 MG TABLET PO SCH (09:21)
[2019-01-20] MEDS: CARVEDILOL 12.5 MG TABLET PO SCH (09:21)
[2019-01-20] MEDS: ENSURE ENLIVE 237 ML LIQUID (VANILLA) PO SCH ×2 (09:22→12:34)
--- NOTE | 2019-01-20 09:30 | NUR ---
MS RN NOTE PATIENT REFUSED FERROUS SULFATE AND THERAGRAM. EXPLAINED RISK VS BENEFITS 3X. PATIENT CONTINUED TO REFUSE. WILL CONTINUE TO MONITOR. Addendum: 01/20/19 at 0952 by INGRID DAY RN MADE AWARE.
--- NOTE | 2019-01-20 09:35 | NUR ---
RN NOTE PER SUELLEN CRISOSTOMO, SUELLEN CANCELLED THORACENTESIS. PER SUELLEN, HAD SOMEONE SPEAK TO HIM IN HIS [place] LANGUAGE AND REFUSED TO HAVE THORACENTESIS. Addendum: 01/20/19 at 1001 by INGRID DAY RN RISKS VS BENEFITS WERE EXPLAINED. PATIENT REFUSED.
[2019-01-20] MEDS ORDERED: MIRT15TA PO (09:46)
[2019-01-20 10:03] LABS: APPEARANCE,URINE CLEAR (CLEAR); BILIRUBIN,URINE NEGATIVE (NEGATIVE); BLOOD, URINE 3+ Ery/uL (NEGATIVE); COLOR,URINE YELLOW (YELLOW); KETONES,URINE NEGATIVE (NEGATIVE); LEUKOCYTE ESTERASE ,URINE NEGATIVE (NEGATIVE); NITRITE, URINE NEGATIVE (NEGATIVE); PH,URINE 5.5 (5.0-8.0); PROTEIN,URINE 2+ mg/dl (NEGATIVE); UGLUCOSE NEGATIVE (NEGATIVE); UROBILINOGEN,URINE 0.2 EU/dL (0.2)
[2019-01-20 10:11] LABS: BACTERIA,URINE Rare /HPF (None Seen); RBC,URINE 51-80 /HPF (0-2); SQUAMOUS EPITHELIAL CELL,UR Few /HPF (None Seen); WBC,URINE 0-2 /HPF (0-3)
--- NOTE | 2019-01-20 11:15 | NUR ---
PER RN INGRID, THRACENTESIS WAS CANCELLED BY SUELLEN CRISOSTOMO, PATIENT WANTS TO BE DISCHARGED
--- NOTE | 2019-01-20 17:23 | NUR ---
MS FAMILY SERVICE ASSISTANT NOTE PATIENT MEDICALLY STABLE FOR TRANSFER. PATIENT IN NO ACUTE DISTRESS. NO SOB NOTED. PATIENT DENIES PAIN AT THIS TIME. NO FACIAL GRIMACING NOTED. PATIENT BREATHING IS EVEN AND UNLABORED. PATIENT HAD NO IV ACCESS. ID BAND REMOVED. PATIENT REFUSED TO HAVE SKIN ASSESSED, PATIENT STATED " DONT TOUCH ME, I DONT WANT MY SKIN TO BE ASSESSED". DC INSTRUCTIONS PROVIDED, PATIENT VERBALIZED UNDERSTANDING. PATIENT SIGNED BELONGINGS LIST, AND HAS ALL BELONGINGS WITH HIM. PATIENT GOING BACK TO [facility] BY [facility]BULANCE. REPORT GIVEN TO CELINA RUTLEDGE AT [facility]. PATIENT KEPT CLEAN AND DRY. PATIENT REPOSITIONED Q2H MUCH PATIENT WOULD ALLOW. MD AWARE DISCHARGE.
== END 2019-01-20 17:35 | DRG 280 ==
LOC: ER 02:15 → TELE 06:01 → TELE-TD 06:53 → TELE 10:15 → MED 01-19 08:33
PROVIDERS: ADMIT Nurse Practitioner Acute Care; ATTEND Nurse Practitioner Acute Care
DX: I48.91 Unspecified atrial fibrillation (principal); I21.A1 Myocardial infarction type 2; E43 Unspecified severe protein-calorie malnutrition; N17.0 Acute kidney failure with tubular necrosis; I50.41 Acute combined systolic (congestive) and diastolic (congestive) heart failure; I13.0 Hypertensive heart and chronic kidney disease with heart failure and stage 1 through stage 4 chronic kidney disease, or unspecified chronic kidney disease; R64 Cachexia; E87.2 Acidosis; Z68.1 Body mass index [BMI] 19.9 or less, adult; J44.9 Chronic obstructive pulmonary disease, unspecified; N18.9 Chronic kidney disease, unspecified; F29 Unspecified psychosis not due to a substance or known physiological condition; E86.0 Dehydration; D50.9 Iron deficiency anemia, unspecified; E87.6 Hypokalemia; R62.7 Adult failure to thrive; Z87.891 Personal history of nicotine dependence; E88.09 Other disorders of plasma-protein metabolism, not elsewhere classified; D72.829 Elevated white blood cell count, unspecified; D63.1 Anemia in chronic kidney disease; I73.9 Peripheral vascular disease, unspecified; Z91.19 Patient's noncompliance with other medical treatment and regimen; F32.9 Major depressive disorder, single episode, unspecified; M62.50 Muscle wasting and atrophy, not elsewhere classified, unspecified site; I42.9 Cardiomyopathy, unspecified; Z79.01 Long term (current) use of anticoagulants; Z79.82 Long term (current) use of aspirin; I27.20 Pulmonary hypertension, unspecified; E05.90 Thyrotoxicosis, unspecified without thyrotoxic crisis or storm
CPT/HCPCS: 36415; 36600; 71045-TC; 76536-TC; 76770-TC; 80048-TC; 80053-TC; 80061-TC; 80076-TC; 81000-TC; 82378; 82550-TC; 82728-TC; 83540-TC; 83735-TC; 83880; 83970; 84100-TC; 84155; 84165; 84439-TC; 84443-TC; 84481; 84484-TC; 85025-TC; 85730-TC; 86480; 87081-TC; 93307-TC; 93880-TC; G0378; J1940; J3480; J3490; J7040; J7050

== ENCOUNTER 2019-01-26 22:31 | Inpatient (IN) | payer MEDICARE, OTHER ==
[~2019-01-26] VITALS: Ht 165.1 cm; Wt 35.4 kg
[~2019-01-26 22:31] MED LIST: ACET-2605 PO; ACET325T53 PO; APIX2.5T PO; BISA10SU61 RC; FERR325T24 PO; MAGN400O21 PO; MULT-213 PO; NA P133E RC; PROHEAL PO; SENN-168 PO
--- NOTE | 2019-01-26 23:23 | NUR ---
ZEE FROM SNF. TO ER BED 9. AAOX2. NO RESP DISTRESS NOTED. BROUGHT IN ON GURPAXTON C/O POOR ORAL INTAKE AND DEHYDRATION PER PA REPORT. PT DENIES OF ANY PAIN. NO NVD. DENIES CP. MD AT BEDSIDE FOR EVAL. ORDERS RECEIVED NOTED AND CARREID OUT. IV LINE OBTAINED ON R AC20G. BLOOD DRAWN AND GIVEN TO SUPERVISOR INSTRUMENT REPAIR AT BEDSIDE. EKG DOEN BY EMT
[2019-01-26 23:24] LABS: BASOPHILS # (AUTO) 0.1 /CMM (0.0-0.2); BASOPHILS % (AUTO) 0.5 % (0.0-2.0); EOSINOPHILS % (AUTO) 0.3 % (0.0-6.0); HEMATOCRIT 33 % (39-51); HEMOGLOBIN 10.7 g/dL (13.5-17.5); LYMPHOCYTES % (AUTO) 17.5 % (20.0-44.0); MEAN CORPUSCULAR HGB CONC 33 g/dl (31.0-36.0); MEAN CORPUSCULAR VOLUME 100 fL (80-96); MONOCYTES # (AUTO) 0.7 /CMM (0.1-1.30); MONOCYTES % (AUTO) 6.5 % (2.0-12.0); NEUTROPHILS # (AUTO) 8.5 /CMM (1.8-8.9); NEUTROPHILS % (AUTO) 75.2 % (43.0-81.0); PLATELET COUNT (AUTO) 295 /CMM (150-450); RED BLOOD CELL COUNT(AUTO) 3.28 MIL/uL (4.5-6.0); WHITE BLOOD COUNT (AUTO) 11.3 K/uL (4.3-11.0)
[2019-01-26 23:35] LABS: CALCIUM, SERUM 8.5 mg/dL (8.5-10.1); CARBON DIOXIDE 24 mmol/L (21-32); CHLORIDE 117 mmol/L (98-107); CREATININE 2.1 mg/dL (0.6-1.3); GLUCOSE 151 mg/dL (74-106); POTASSIUM 4.2 mmol/L (3.5-5.1); SODIUM SERUM 151 mmol/L (136-145); UREA NITROGEN, BLOOD 38 mg/dL (7-18)
[2019-01-26 23:41] LABS: ALANINE AMINOTRANSFERASE 32 U/L (12-78); ALBUMIN 2.2 g/dL (3.4-5.0); ALKALINE PHOSPHATASE 93 U/L (46-116); ASPARTATE AMINOTRANSFERASE 37 U/L (15-37); BILIRUBIN,DIRECT 0.3 mg/dL (0.0-0.2); BILIRUBIN,TOTAL 0.7 mg/dL (0.2-1.0); TOTAL PROTEIN, SERUM 7.5 g/dL (6.4-8.2)
--- NOTE | 2019-01-26 23:52 | NUR ---
TROPONIN 0.741. LACTIC 2.8. MD AWARE.
[2019-01-27] MEDS ORDERED: IV NS 0.9% 1,000 ML BAG IV ONE
[2019-01-27] MEDS ORDERED: VANCOMYCIN 1 GM in IV D5W 250 ML IV ONE ×2
[2019-01-27] MEDS ORDERED: VANCOMYCIN 1 GM VIAL ONE (00:13)
[2019-01-27] MEDS ORDERED: PIPERACILLIN /TAZOBACTAM 3.375 G VIAL IV ONE (00:14)
[2019-01-27] MEDS: PIPERACILLIN /TAZOBACTAM 2.25 G in IV D5W 50 ML IV ONE (00:24)
[2019-01-27] MEDS ORDERED: PIPERACILLIN /TAZOBACTAM 2.25 G VIAL IV ONE ×2 (00:30→06:03)
--- NOTE | 2019-01-27 01:07 | NUR ---
zosyn 2.25gm taken from [facility]. medication is not available in er
[2019-01-27] MEDS ORDERED: DILTIAZEM HCL 50 MG IV IV ONE ×2 (01:30→02:30)
[2019-01-27] MEDS ORDERED: DILTIAZEM HCL 25 MG IV ONE (01:37)
--- NOTE | 2019-01-27 02:11 | NUR ---
CALLED [facility] FOR RADIOLOGY REPORT
[2019-01-27] MEDS: DILTIAZEM HCL 50 MG IV IV ONE ×2 (02:13→02:27)
--- NOTE | 2019-01-27 02:19 | NUR ---
CALLED RN SUP FOR TELE BED
--- NOTE | 2019-01-27 02:34 | NUR ---
PT URINATED AND SPECIMEN SENT TO LAB
[2019-01-27 02:47] LABS: APPEARANCE,URINE Slightly Cloudy (CLEAR); BILIRUBIN,URINE Negative (NEGATIVE); BLOOD, URINE Large Ery/uL (NEGATIVE); COLOR,URINE Dark (YELLOW); KETONES,URINE Negative (NEGATIVE); LEUKOCYTE ESTERASE ,URINE Negative (NEGATIVE); NITRITE, URINE Negative (NEGATIVE); PH,URINE 5.5 (5.0-8.0); PROTEIN,URINE >=300 mg/dl (NEGATIVE); UGLUCOSE 100 MG/DL mg/dL (NEGATIVE); UROBILINOGEN,URINE 0.2 EU/dL (0.2)
[2019-01-27 02:49] LABS: BACTERIA,URINE None seen /HPF (None Seen); RBC,URINE 51-80 /HPF (0-2); SQUAMOUS EPITHELIAL CELL,UR Few /HPF (None Seen); WBC,URINE 0-2 /HPF (0-3)
--- NOTE | 2019-01-27 02:53 | NUR ---
PT ASSIGNED 115-2
--- NOTE | 2019-01-27 02:59 | NUR ---
CALLED [facility] FOR PANEL ADMISSION, WAITING FOR DR. MONTILLA CALL BACK
--- NOTE | 2019-01-27 03:25 | NUR ---
REPORT GIVEN TO MATY CHIN FOR MILAGROS. PT GOING TO 115
[2019-01-27] MEDS ORDERED: ONDANSETRON HCL/PF 4 MG/2 ML VIAL IVP PRN (04:00)
[2019-01-27] MEDS ORDERED: Z GUARD REMEDY 2 OZ OINT TP PRN (04:00)
[2019-01-27] MEDS ORDERED: HYDROCODONE/APAP 5/325MG 1 EACH TABLET PO PRN (04:00)
[2019-01-27] MEDS ORDERED: MAG HYDROX/AL HYDROX/SIMETH 30 ML UDC PO PRN (04:00)
[2019-01-27] MEDS ORDERED: ZOLPIDEM TARTRATE 5 MG TABLET PO PRN (04:00)
[2019-01-27] MEDS ORDERED: MAGNESIUM HYDROXIDE 30 ML UDC PO PRN (04:00)
[2019-01-27] MEDS ORDERED: ACETAMINOPHEN 325 MG TABLET PO PRN (04:00)
--- NOTE | 2019-01-27 04:15 | NUR ---
PT PULLED OUT HIS IV LINE ON R AC 20G. NEW IV LINE OBTAINED ON L AC 20G.
--- NOTE | 2019-01-27 04:23 | NUR ---
PT TRANSPORTED TO UNIT ON GURNEY WITH 2 RN AT BEDSIDE W/ ACLS PROTOCOL. NAD NOTED DURING TRANSPORT.
[2019-01-27 04:30] VITALS: BP 138/64
--- NOTE | 2019-01-27 04:30 | NUR ---
TITLE CLOSER NOTES Patient came to unit from ER via gurney. Patient is alert, oriented x 1, Breathing even and unlabored. Not in any distress, on room air. Patient is irritable, angry and uncooperative. Patient shouts and curses staff and refused cares. Tele monitor in place- controlled afib. Skin assessment done. Managed to take some pictures but refused most of it to be taken, shouting, leave me alone, do not touch me. Oriented to call light- placed within reach. Bed in lowest loced position with side rails x 3 up and bed alarm on. Will continue to monitor accordingly
[2019-01-27] MEDS ORDERED: PIPERACILLIN /TAZOBACTAM 4.5 G in IV D5W 50 ML IV SCH (06:00)
[2019-01-27] MEDS: DILTIAZEM HCL 30 MG TABLET PO SCH ×4 (06:00→23:29)
[2019-01-27] MEDS: ZOSYN IVPB 2.25 G in IV D5W 50ml IV SCH ×4 (06:21→23:24)
--- NOTE | 2019-01-27 06:40 | NUR ---
VENEER GLUE SPREADER CLOSING NOTES Patient sleeping in bed, comfortable. Breathing even and unlabored. Not in any distress, on room air. IV Zosyn 2.25g currently infusing as ordered. On tele monitor- controlled afib. Safety measures in place, call light within reach, bed in low locked position with side rails x 3 up and bed alarm on. Will endorse MILAGROS to oncoming RN
--- NOTE | 2019-01-27 07:30 | NUR ---
TELE/RN OPENING NOTES RECEIVED PATIENT IN BED SLEEPING COMFORTABLY. EASILY AROUSABLE. PATIENT IS ALERT AND ORIENTED X1. NO PAIN OR ACUTE DISTRESS AT THIS TIME. RESPIRATION EVEN AND UNLABORED. SKIN IS DRY WARM TO TOUCH. NOTED WITH LEFT AC #20G IV ACCESS. INTACT AND PATENT. FLUSHING WELL. NO S/S OF INFECTION OR INFILTRATION. ALL NEEDS ANTICIPATED. CALL LIGHT WITHIN REACHED. SAFETY MAINTAINED. SIDE RAILS X2. BED LOCKED AND IN LOWEST POSITION. WILL CONTINUE TO MONITOR CLOSELY.
[2019-01-27 07:46] LABS: BASOPHILS % (AUTO) 0.2 % (0.0-2.0); EOSINOPHILS % (AUTO) 0.5 % (0.0-6.0); HEMATOCRIT 30 % (39-51); HEMOGLOBIN 9.6 g/dL (13.5-17.5); MEAN CORPUSCULAR HGB CONC 33 g/dl (31.0-36.0); MEAN CORPUSCULAR VOLUME 100 fL (80-96); MONOCYTES # (AUTO) 0.8 /CMM (0.1-1.30); MONOCYTES % (AUTO) 8.1 % (2.0-12.0); NEUTROPHILS # (AUTO) 6.6 /CMM (1.8-8.9); NEUTROPHILS % (AUTO) 70.2 % (43.0-81.0); PLATELET COUNT (AUTO) 232 /CMM (150-450); RED BLOOD CELL COUNT(AUTO) 2.93 MIL/uL (4.5-6.0); WHITE BLOOD COUNT (AUTO) 9.4 K/uL (4.3-11.0)
[2019-01-27 08:00] VITALS: BP 128/72
[2019-01-27 08:05] LABS: ALANINE AMINOTRANSFERASE 27 U/L (12-78); ALBUMIN 2.1 g/dL (3.4-5.0); ALKALINE PHOSPHATASE 83 U/L (46-116); ASPARTATE AMINOTRANSFERASE 29 U/L (15-37); BILIRUBIN,TOTAL 0.7 mg/dL (0.2-1.0); CALCIUM, SERUM 7.7 mg/dL (8.5-10.1); CARBON DIOXIDE 22 mmol/L (21-32); CHLORIDE 119 mmol/L (98-107); CREATININE 1.9 mg/dL (0.6-1.3); GLUCOSE 80 mg/dL (74-106); PHOSPHORUS 2.6 mg/dL (2.5-4.9); SODIUM SERUM 153 mmol/L (136-145); TOTAL PROTEIN, SERUM 6.9 g/dL (6.4-8.2); UREA NITROGEN, BLOOD 35 mg/dL (7-18)
[2019-01-27] MEDS ORDERED: MIRT15TA PO (08:12)
[2019-01-27] MEDS ORDERED: AMIN30LI2 PO (08:12)
[2019-01-27] MEDS ORDERED: FEE PK DOSING 1 MIN EA MC ONE (08:43)
[2019-01-27] MEDS ORDERED: IV NS 0.9% 1,000 ML IV PRN (09:02)
[2019-01-27 12:00] VITALS: BP 130/66
[2019-01-27] MEDS: IV D5W 1,000 ML IV PRN (14:52)
--- NOTE | 2019-01-27 19:23 | NUR ---
MS/RN CLOSING NOTES PATIENT CONTINUES TO REMAIN IN STABLE CONDITION THROUGHOUT THE SHIFT. PROVIDED COMFORT AND SAFETY. PATIENT REMAINS CALM. SITTER AT BEDSIDE. NOTED WITH LEFT HAND #24G IV ACCESS. INTACT AND PATENT. FLUSHING WELL. NO S/S OF INFECTION OR INFILTRATION. ALL NEEDS ANTICIPATED. CALL LIGHT WITHIN REACHED. SAFETY MAINTAINED. SIDE RAILS X2. BED LOCKED AND IN LOWEST POSITION. WILL CONTINUE TO MONITOR CLOSELY. ENDORSED TO PM NURSE FOR MILAGROS.
--- NOTE | 2019-01-27 19:30 | NUR ---
MS RN NOTES, PATIENT IN BED AWAKE WITH RESTRAINS IN PLACED, NO ABNORMALITY AT SITE, NO CIRCULATION OVERPROMISED, PER PROPR RN PATIENT PULLING TUBINGS AND IV CATHETER, AT THIS TIME, PATIENT INTIMIDATING PATIENTS BED 2 FAMILY ASKING THEM TO REMOVE THE RESTRAINS, REDIRECTION OF BEHAVIOR PROVIDED, AND BLOCKER AND CUTTER CONTACT LENS AWARE , NO SITTER AT THIS TIME, LEFT HAND #24G IV ACCESS, INTACT AND PATENT, NO SIGNS OF INFILTRATION NOTED AT SITE, CALL LIGHT WITHIN REACHED, SAFETY MAINTAINED, SIDE RAILS X2 IN PLACED, BED LOCKED AND IN LOWEST POSITION, WILL CONTINUE TO MONITOR CLOSELY.
[2019-01-27 20:00] VITALS: BP 132/54
[2019-01-28] VITALS: BP 121/73
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
--- NOTE | 2019-01-28 00:40 | NUR ---
RN NOTES, CALLED PHARMACY HEALTH EDUCATION AIDE AND SPOKE WITH NENA, INFORMED THAT PATIENT REFUSED VANCOMYCIN THROUGH AT THIS TIME, AND PATIENT HAS VANCOMYCIN MEDICATION TO ADMINISTER AT 0100, PER NENA TO ADMINISTER MEDIATION AT THIS TIME.
[2019-01-28] MEDS ORDERED: VANCOMYCIN 500 MG VIAL ONE (00:44)
[2019-01-28] MEDS: VANCOMYCIN 500 MG in IV D5W 100 ML IV SCH (00:56)
[2019-01-28] MEDS: IV D5W 1,000 ML IV PRN (02:48)
[2019-01-28 04:00] VITALS: BP 131/77
[2019-01-28] MEDS: ZOSYN IVPB 2.25 G in IV D5W 50ml IV SCH ×3 (05:41→17:12)
[2019-01-28] MEDS: DILTIAZEM HCL 30 MG TABLET PO SCH ×4 (05:43→18:00)
--- NOTE | 2019-01-28 06:40 | NUR ---
MS RN NOTES, PATIENT IN BED SLEEPING AT THIS TIME, BUT AROUSES EASILY TO VERBAL/TACTILE STIMULI, NO SIGNIFICANT CHANGE IN CONDITION DURING THE NIGHT, CALL LIGHT WITHIN REACHED, SAFETY MAINTAINED, SIDE RAILS X2 IN PLACED, BED LOCKED AND IN LOWEST POSITION, WILL ENDORSE CONTINUITY OF CARE TO ONCOMING NURSE.
--- NOTE | 2019-01-28 06:51 | NUR ---
RN NOTES, CONTINUE ON BILATERAL SOFT WRIST RESTRAINS, NO CIRCULATION COMPROMISED, NO ABNORMALITY NOTED, FREQUENT CHECKS ORDERED DONE, ENDORSED TO TIFFANY RN FOR CONTINUATION OF CARE.
[2019-01-28 08:00] VITALS: BP_SYST 121; BP_SYST 133; BP_DIAS 102; BP_DIAS 69
--- NOTE | 2019-01-28 09:00 | NUR ---
MS1/RN AM SHIFT INITIAL NOTES RECEIVED PT SLEEP IN BED, EASILY AROUSED, PT A/O X 1, NO ACUTE DISTRESS NOTED BUT PT IS AGITATED AND COMBATIVE. ON ROOM AIR, SATURATING @ 100%, RESPIRATIONS EVEN AND UNLABORED, WITH ON GOING IV INFUSION OF D5W @ 100CC/HR, SITE PATENT WITH NO S/S OF INFECTION. BILATERAL WRIST RESTRAINTS REMOVED TO CHECK FOR CIRCULATION AND COMFORT THEN PLACED BACK. PT REFUSED HIS BREAKFAST, WILL TRY TO CONVINCE LATER. CL WITHIN REACHED AND SAFETY MAINTAINED. ON GOING MONITORING.
[2019-01-28 09:19] LABS: BASOPHILS % (AUTO) 0.4 % (0.0-2.0); EOSINOPHILS % (AUTO) 1.7 % (0.0-6.0); HEMATOCRIT 31 % (39-51); HEMOGLOBIN 10.1 g/dL (13.5-17.5); LYMPHOCYTES # (AUTO) 2.4 /CMM (0.8-4.8); LYMPHOCYTES % (AUTO) 26.9 % (20.0-44.0); MEAN CORPUSCULAR HGB CONC 33 g/dl (31.0-36.0); MEAN CORPUSCULAR VOLUME 101 fL (80-96); MONOCYTES # (AUTO) 0.8 /CMM (0.1-1.30); MONOCYTES % (AUTO) 8.8 % (2.0-12.0); NEUTROPHILS # (AUTO) 5.5 /CMM (1.8-8.9); NEUTROPHILS % (AUTO) 62.2 % (43.0-81.0); PLATELET COUNT (AUTO) 232 /CMM (150-450); RED BLOOD CELL COUNT(AUTO) 3.07 MIL/uL (4.5-6.0); WHITE BLOOD COUNT (AUTO) 8.8 K/uL (4.3-11.0)
[2019-01-28 09:33] LABS: ALANINE AMINOTRANSFERASE 19 U/L (12-78); ALBUMIN 1.8 g/dL (3.4-5.0); ALKALINE PHOSPHATASE 70 U/L (46-116); ASPARTATE AMINOTRANSFERASE 25 U/L (15-37); CALCIUM, SERUM 7.4 mg/dL (8.5-10.1); CARBON DIOXIDE 22 mmol/L (21-32); CHLORIDE 110 mmol/L (98-107); CREATININE 1.9 mg/dL (0.6-1.3); GLUCOSE 114 mg/dL (74-106); MAGNESIUM 1.8 mg/dL (1.8-2.4); PHOSPHORUS 2.4 mg/dL (2.5-4.9); POTASSIUM 3.6 mmol/L (3.5-5.1); SODIUM SERUM 141 mmol/L (136-145); TOTAL PROTEIN, SERUM 6.5 g/dL (6.4-8.2); UREA NITROGEN, BLOOD 25 mg/dL (7-18)
[2019-01-28 09:36] LABS: CHOLESTEROL 116 mg/dL (<200); HDL CHOLESTEROL 36 mg/dL (40-60); LDL 74 mg/dL (0-99); TRIGLYCERIDES 91 mg/dL (30-150)
[2019-01-28] MEDS ORDERED: IV D5W 1,000 ML IV PRN (10:00)
[2019-01-28] MEDS ORDERED: IV 1/2NS 1000 ML 1,000 ML IV PRN (12:30)
[2019-01-28] MEDS: K PHOS NEUTRAL 250 MG TABLET PO ONE ×2 (13:30→16:13)
[2019-01-28 16:00] VITALS: BP 126/72
[2019-01-28] MEDS: LACTOBACILLUS RHAMNOSUS GG 1 EACH CAP.SPRINK PO SCH ×2 (16:13→17:00)
[2019-01-28] MEDS: MEGESTROL ACETATE 40 MG TABLET PO SCH ×2 (16:13→17:00)
--- NOTE | 2019-01-28 18:00 | NUR ---
MS1/RN PM MEDS - REFUSED PT REFUSED SCHEDULED P.O PM MEDS, PT IS CONFUSED. I TRIED SEVERAL TIMES TO ENCOURAGE BUT FAILED. MONITORING CONTINUED.
--- NOTE | 2019-01-28 19:38 | NUR ---
MS1/RN AM SHIFT END NOTES ALL NEEDS MET. NO ACUTE CHANGE OF CONDITION NOTED DURING THE SHIFT. PT ENDORSED TO PM NURSE TO CONTINUE CARE. CL WITHIN REACHED AND SAFETY MAINTAINED.
[2019-01-28 20:00] VITALS: BP 146/75
--- NOTE | 2019-01-28 20:00 | NUR ---
RN NOTES RECEIVED PATIENT AWAKE ALERT ORIENTED X1, RESTING COMFORTABLY NO APPARENT SIGNS OF ACUTE DISTRESS NOTED, ASPIRATION PRECAUTION EMPHASIZE, SAFETY MEASURES IN PLACE, IV ACCESS ON HIS RIGHT HAND G#24 INTACT AND PATENT, CALL LIGHT WITHIN EASY REACH, ALL NEEDS ANTICIPATED, WILL CONTINUE TO MONITOR ACCORDINGLY.
[2019-01-28 20:05] VITALS: BP 146/75
[2019-01-29 00:45] VITALS: BP 146/75
[2019-01-29] MEDS: ZOSYN IVPB 2.25 G in IV D5W 50ml IV SCH ×4 (01:42→19:04)
--- NOTE | 2019-01-29 02:08 | NUR ---
RN NOTES CALLED AND SPOKE TO DEJAH OF PHARMACY DEPT. CLARIFIED IF ITS OK TO GIVE VANCOMYCIN DOSE SCHEDULE, SINCE PATIENT REFUSED VANCOMYCIN TROUGH, DEJAH CALLED BACK AGAIN AND OK'D TO ADMINISTER VANCOMYCIN AT THIS TIME, WILL ORDER RANDOM VANCO TROUGH LATER IN THE MORNING PER DEJAH. PATIENT IS RESTING DOZING OFF, NO SIGNS OF ACUTE CARDIAC AND RESPIRATORY DISTRESS NOTED. WILL CONTINUE TO MONITOR.
[2019-01-29] MEDS: VANCOMYCIN 500 MG in IV D5W 100 ML IV SCH (02:33)
[2019-01-29] MEDS: DILTIAZEM HCL 30 MG TABLET PO SCH ×5 (06:00→18:19)
--- NOTE | 2019-01-29 07:32 | NUR ---
RN NOTES ALL NEEDS ATTENDED AND MET, REFUSED 0600 AM MEDS, REFUSED AM LAB DRAWS, ABLE TO TAKE PHOTOS OF SKIN CONDITION, SAFETY MEASURES IN PLACE, ASPIRATION PRECAUTION EMPHASIZED, ENDORSED TO AM NURSE FOR CONTINUITY OF CARE.
[2019-01-29 08:00] VITALS: BP 141/76
--- NOTE | 2019-01-29 08:00 | NUR ---
MS1/RN AM SHIFT INITIAL NOTES RECEIVED PT SLEEP IN BED, EASILY AROUSED, PT A/O X 1, NO ACUTE DISTRESS NOTED AT THIS TIME. ON ROOM AIR, SATURATING @ 95%, RESPIRATIONS EVEN AND UNLABORED, IV SITE FLUSHED, PATENT, NO S/S OF INFECTION, SL. BILATERAL WRIST RESTRAINTS REMOVED TO CHECK FOR CIRCULATION AND COMFORT THEN PLACED BACK. PT IS COMFORTABLE, SCHEDULED AM MEDS TO BE GIVEN. CL WITHIN REACHED AND SAFETY MAINTAINED. ON GOING MONITORING.
[2019-01-29] MEDS: LACTOBACILLUS RHAMNOSUS GG 1 EACH CAP.SPRINK PO SCH ×2 (09:29→18:09)
[2019-01-29] MEDS: MEGESTROL ACETATE 40 MG TABLET PO SCH ×2 (09:29→18:09)
[2019-01-29 09:30] LABS: BASOPHILS % (AUTO) 0.4 % (0.0-2.0); EOSINOPHILS % (AUTO) 0.9 % (0.0-6.0); HEMATOCRIT 33 % (39-51); LYMPHOCYTES # (AUTO) 1.7 /CMM (0.8-4.8); LYMPHOCYTES % (AUTO) 20.3 % (20.0-44.0); MEAN CORPUSCULAR HGB CONC 33 g/dl (31.0-36.0); MEAN CORPUSCULAR VOLUME 98 fL (80-96); MONOCYTES # (AUTO) 0.6 /CMM (0.1-1.30); MONOCYTES % (AUTO) 7.2 % (2.0-12.0); NEUTROPHILS # (AUTO) 5.9 /CMM (1.8-8.9); NEUTROPHILS % (AUTO) 71.2 % (43.0-81.0); PLATELET COUNT (AUTO) 230 /CMM (150-450); RED BLOOD CELL COUNT(AUTO) 3.39 MIL/uL (4.5-6.0); WHITE BLOOD COUNT (AUTO) 8.3 K/uL (4.3-11.0)
[2019-01-29 09:59] LABS: CALCIUM, SERUM 7.4 mg/dL (8.5-10.1); CARBON DIOXIDE 22 mmol/L (21-32); CHLORIDE 109 mmol/L (98-107); CREATININE 1.8 mg/dL (0.6-1.3); GLUCOSE 80 mg/dL (74-106); MAGNESIUM 1.7 mg/dL (1.8-2.4); POTASSIUM 3.4 mmol/L (3.5-5.1); SODIUM SERUM 143 mmol/L (136-145); UREA NITROGEN, BLOOD 21 mg/dL (7-18)
--- NOTE | 2019-01-29 10:45 | NUR ---
MS1/RN ROUNDS - DR. GENTILE UPDATED PT'S CONDITION, PT SEEN & EXAMINED BY DR. GENTILE. NO NEW ORDERS RECEIVED AT THIS TIME. MONITORING CONTINUED.
[2019-01-29] MEDS: NEOMY SULF/BACITRAC ZN/POLY 15 GM TUBE TP SCH (15:37)
[2019-01-29 16:00] VITALS: BP 140/88
[2019-01-29 20:00] VITALS: BP 135/91
--- NOTE | 2019-01-29 20:00 | NUR ---
LOUISE RN INITIAL NOTES RECEIVED PT SLEEP IN BED, EASILY AROUSED, PT A/O X 1-2, NO ACUTE DISTRESS NOTED AT THIS TIME. ON ROOM AIR, SATURATING @ 99%, RESPIRATIONS EVEN AND UNLABORED, IV SITE FLUSHED, PATENT, NO S/S OF INFECTION, SL. PT IS COMFORTABLE, SCHEDULED PM MEDS TO BE GIVEN. BED IS LOW LOCKED POSITION, CL WITHIN REACHED AND SAFETY MAINTAINED. ON GOING MONITORING.
--- NOTE | 2019-01-29 20:00 | NUR ---
MS1/RN AM SHIFT END NOTES ALL NEEDS MET, NO ACUTE CHANGE OF CONDITION NOTED DURING THE SHIFT. PT ENDORSED TO PM NURSE TO CONTINUE CARE. CL WITHIN REACHED AND SAFETY MAINTAINED.
--- NOTE | 2019-01-29 22:00 | NUR ---
LOUISE RN NOTES PATIENT'S POTASSIUM LEVEL IS 3.4. SUELLEN CRISOSTOMO IS IN THE UNIT AND NOTIFIED. NO NEW ORDERS FOR NOW. WILL ENDORSE TO AM SHIFT RN TO F/U . WILL CONTINUE TO MONITOR PATIENT CLOSELY.
[2019-01-30] MEDS: DILTIAZEM HCL 30 MG TABLET PO SCH ×4 (00:34→17:30)
[2019-01-30] MEDS: ZOSYN IVPB 2.25 G in IV D5W 50ml IV SCH ×4 (00:35→17:30)
[2019-01-30] MEDS: VANCOMYCIN 500 MG in IV D5W 100 ML IV SCH ×2 (00:42→13:34)
[2019-01-30 04:00] VITALS: BP 125/73
--- NOTE | 2019-01-30 07:25 | NUR ---
MS/RN OPENING NOTES RECEIVED PATIENT IN BED SLEEPING COMFORTABLY. EASILY AROUSABLE. NO PAIN OR ACUTE DISTRESS AT THIS TIME. RESPIRATION EVEN AND UNLABORED. SKIN IS DRY WARM TO TOUCH. PATIENT IS ALERT AND ORIENTED X1-2. PATIENT ON ROOM AIR, SATURATING @ 99%. PATIENT NOTED WITH IV SITE ON LFA. INTACT AND PATENT. FLUSHING WELL. NO S/S OF INFECTION OR INFILTRATION. ALL NEEDS ANTICIPATED. CALL LIGHT WITHIN REACHED. BED LOCKED AND IN LOWEST POSITION. SAFETY MAINTAINED. WILL CONTINUE TO MONITOR CLOSELY.
[2019-01-30 08:00] VITALS: BP 131/78
[2019-01-30 08:20] LABS: CALCIUM, SERUM 7.5 mg/dL (8.5-10.1); CARBON DIOXIDE 20 mmol/L (21-32); CHLORIDE 109 mmol/L (98-107); CREATININE 1.8 mg/dL (0.6-1.3); GLUCOSE 78 mg/dL (74-106); POTASSIUM 2.9 mmol/L (3.5-5.1); SODIUM SERUM 141 mmol/L (136-145); UREA NITROGEN, BLOOD 19 mg/dL (7-18)
[2019-01-30] MEDS: LACTOBACILLUS RHAMNOSUS GG 1 EACH CAP.SPRINK PO SCH ×2 (08:47→17:30)
[2019-01-30] MEDS: NEOMY SULF/BACITRAC ZN/POLY 15 GM TUBE TP SCH (08:47)
[2019-01-30] MEDS: MEGESTROL ACETATE 40 MG TABLET PO SCH ×2 (08:47→17:30)
--- NOTE | 2019-01-30 09:46 | NUR ---
WOUND CARE CONSULT WOUND CARE RECEIVED CONSULT FOR SKIN ISSUES. WOUND CARE WILL DEFER CONSULT AND TREATMENT PLANS TO PLASTIC SURGICAL TEAM WHO ARE CURRENTLY FOLLOWING THIS PATIENT. PATIENT WITH JOYCE AT 10, ALL PRESSURE ULCER PREVENTION MEASURES ARE NOTED TO BE IN PLACE AT THIS TIME. ISOFLEX LOW AIRLOSS SPECIALTY BED TO BE PLACED WHEN AVAILABLE. WILL SEE PRN.
[2019-01-30] MEDS: POTASSIUM CL. PREMIX PERIPHER. 50 ML IV SCH ×5 (10:40→14:08)
[2019-01-30] MEDS: APIXABAN 2.5 MG TABLET PO SCH ×2 (12:19→17:32)
[2019-01-30 16:00] VITALS: BP_SYST 117; BP_SYST 128; BP_DIAS 70; BP_DIAS 78
[2019-01-30] MEDS: ENSURE ENLIVE 237 ML LIQUID (VANILLA) PO SCH ×2 (16:19→17:50)
--- NOTE | 2019-01-30 19:19 | NUR ---
MS/RN CLOSING NOTES PATIENT CONTINUES TO REMAIN IN STABLE CONDITION THROUGHOUT THE SHIFT. PROVIDED COMFORT AND SAFETY. KEPT ASKING THE PATIENT IF WE COULD CHANGE HIS BED TO ISOFLEX BUT PATIENT CONTINUES TO REFUSE. EXPLAINED RISK AND BENEFITS STILL REFUSED. ENDORSED TO PM NURSE IF THEY CAN CHANGE THE BED IF THE PATIENT ALLOWS THEM TO. PATIENT WITH IV SITE ON LFA AND RFA. INTACT AND PATENT. FLUSHING WELL. NO S/S OF INFECTION OR INFILTRATION. ALL NEEDS ANTICIPATED. CALL LIGHT WITHIN REACHED. KEPT CLEAN AND DRY. BED LOCKED AND IN LOWEST POSITION. SAFETY MAINTAINED. WILL CONTINUE TO MONITOR CLOSELY. ENDORSED TO PM NURSE FOR MILAGROS.
--- NOTE | 2019-01-30 20:00 | NUR ---
LOUISE RN INITIAL NOTES RECEIVED PT SLEEP IN BED, EASILY AROUSED, PT A/O X 1-2, NO ACUTE DISTRESS NOTED AT THIS TIME. ON ROOM AIR, RESPIRATIONS EVEN AND UNLABORED, IV SITE FLUSHED, PATENT, NO S/S OF INFECTION, SL. PT IS COMFORTABLE, SCHEDULED PM MEDS TO BE GIVEN. BED IS LOW LOCKED POSITION, CL WITHIN REACHED AND SAFETY MAINTAINED. ON GOING MONITORING.
--- NOTE | 2019-01-30 21:29 | NUR ---
RN NOTES PATIENT IS ANGRY AND REFUSING VITAL SIGNS AND ALL HIS MEDICATIONS. PT HAS BEEN ASKED TO BE PLACED ON ISOFLEX BED AND HE IS REFUSING AT THIS TIME BY SAYING "DO NOT TOUCH ME, I WANT TO SLEEP". ALL RISKS AND BENEFITS HAS BEEN EXPLAINED TO THE PATIENT AND STILL REFUSING MEDS, V/S AND ISOFLEX BED. WILL ASK HIM AGAIN ALISA.
--- NOTE | 2019-01-31 00:15 | NUR ---
RN NOTES PATIENT IS REFUSING MIDNIGHT V/S AND ALL HIS MEDICATIONS. ALL RISKS AND BENEFITS EXPLAINED. WILL CONTINUE TO MONITOR PATIENT CLOSELY.
--- NOTE | 2019-01-31 04:00 | NUR ---
RN NOTES PATIENT IS REFUSING 0400 V/S AND ALL HIS 0600 MEDICATIONS. ALL RISKS AND BENEFITS EXPLAINED.MD DAVID THOMPSON NOTIFIED.NO NEW ORDERS FOR NOW. WILL CONTINUE TO MONITOR PATIENT CLOSELY.
--- NOTE | 2019-01-31 05:38 | NUR ---
PATIENT REFUSED EKG AND LAB WORK. ALL RISKS AND BENEFITS EXPLAINED TO THE PATIENT. WILL CONTINUE TO MONITOR PATIENT CLOSELY.
[2019-01-31] MEDS: ZOSYN IVPB 2.25 G in IV D5W 50ml IV SCH ×5 (05:54→18:00)
[2019-01-31] MEDS: DILTIAZEM HCL 30 MG TABLET PO SCH ×4 (05:55→18:00)
--- NOTE | 2019-01-31 06:26 | NUR ---
PATIENT REFUSED HIS DIPER TO BE CHANGED THROUGHOUT THE SHIFT.ALL THE RISKS AND BENEFITS HAS BEEN EXPLAINED.
--- NOTE | 2019-01-31 07:05 | NUR ---
MS RN OPENING RECEIVED PATIENT AWAKE AND ALERT. DOES NOT RESPOND TO QUESTIONS, BUT IS ABLE TO TALK. NO SIGNS OF PAIN OR RESPIRATORY DISTRESS NOTED. REFUSED AM VITALS. MD AWARE OF NONCOMPLIANCE. RIGHT FA 24G C/D/I, PATENT. BED ALARM ON. WILL CONT TO MONITOR
--- NOTE | 2019-01-31 07:45 | NUR ---
PATIENT AGREES TO CHANGE DIAPER AT THIS TIME. MEPILEX APPLIED
[2019-01-31 08:00] VITALS: BP 130/58
[2019-01-31] MEDS: LACTOBACILLUS RHAMNOSUS GG 1 EACH CAP.SPRINK PO SCH ×2 (08:34→17:00)
[2019-01-31] MEDS: MEGESTROL ACETATE 40 MG TABLET PO SCH ×2 (08:34→17:00)
[2019-01-31] MEDS: NEOMY SULF/BACITRAC ZN/POLY 15 GM TUBE TP SCH (08:35)
[2019-01-31] MEDS: ENSURE ENLIVE 237 ML LIQUID (VANILLA) PO SCH ×3 (08:35→17:00)
[2019-01-31] MEDS: APIXABAN 2.5 MG TABLET PO SCH ×2 (08:38→17:00)
[2019-01-31] MEDS: VANCOMYCIN 500 MG in IV D5W 100 ML IV SCH ×2 (13:00→13:43)
[2019-01-31 16:00] VITALS: BP 136/55
[2019-01-31] MEDS ORDERED: ASPI-1169 PO (16:10)
[2019-01-31] MEDS ORDERED: MEGE40TA PO (16:10)
[2019-01-31] MEDS ORDERED: CARV12.5 PO (16:10)
[2019-01-31] MEDS ORDERED: NEOM15OI3 TP (16:10)
--- NOTE | 2019-01-31 17:30 | NUR ---
RN DC NOTE RECEIVED DC ORDER TO SNF. PATIENT STABLE. ON ROOM AIR, NO RESPIRATORY DISTRESS. IV REMOVED, CATH INTACT, DRESSING APPLIED. REPORT GIVEN TO MATY LUNA AT 4 SEASONS. WOUND PICTURES TAKEN. BELONGINGS CHECKLIST SIGNED. MD ORDERS RELAYED R/T HEART MEDS. Addendum: 01/31/19 at 1917 by GRACIE GRACIA RN FRANCIE DE [facility] INFO ON PATIENT'S FACESHEET, NUMBER NOT WORKING
== END 2019-01-31 19:52 | DRG 871 ==
LOC: ER 22:32 → TELE1 01-27 03:37 → MEDSG1 01-27 11:58
PROVIDERS: ADMIT Nurse Practitioner Acute Care; ATTEND Registered Nurse
DX: A41.9 Sepsis, unspecified organism (principal); J15.6 Pneumonia due to other Gram-negative bacteria; N17.0 Acute kidney failure with tubular necrosis; I21.A1 Myocardial infarction type 2; E87.0 Hyperosmolality and hypernatremia; I50.22 Chronic systolic (congestive) heart failure; I13.0 Hypertensive heart and chronic kidney disease with heart failure and stage 1 through stage 4 chronic kidney disease, or unspecified chronic kidney disease; E87.2 Acidosis; D68.59 Other primary thrombophilia; R64 Cachexia; Z68.1 Body mass index [BMI] 19.9 or less, adult; I42.9 Cardiomyopathy, unspecified; E46 Unspecified protein-calorie malnutrition; J44.0 Chronic obstructive pulmonary disease with (acute) lower respiratory infection; D63.8 Anemia in other chronic diseases classified elsewhere; N18.9 Chronic kidney disease, unspecified; D53.9 Nutritional anemia, unspecified; F17.200 Nicotine dependence, unspecified, uncomplicated; I25.2 Old myocardial infarction; I25.10 Atherosclerotic heart disease of native coronary artery without angina pectoris; I48.91 Unspecified atrial fibrillation; E86.0 Dehydration; E88.09 Other disorders of plasma-protein metabolism, not elsewhere classified; F32.9 Major depressive disorder, single episode, unspecified; R62.7 Adult failure to thrive; L90.5 Scar conditions and fibrosis of skin; S50.312A Abrasion of left elbow, initial encounter; X58.XXXA Exposure to other specified factors, initial encounter; Y93.9 Activity, unspecified; Y92.129 Unspecified place in nursing home as the place of occurrence of the external cause; Z98.42 Cataract extraction status, left eye; Z98.41 Cataract extraction status, right eye; D75.89 Other specified diseases of blood and blood-forming organs; Z91.19 Patient's noncompliance with other medical treatment and regimen
CPT/HCPCS: 36415; 71045-TC; 76770-TC; 80048-TC; 80053-TC; 80061-TC; 80076-TC; 80202-TC; 81000-TC; 83605-TC; 83735-TC; 84100-TC; 84484-TC; 85025-TC; 85730-TC; 87040-TC; 87081-TC; 87086-TC; G0378; J2543; J3370; J3480; J3490; J7030; J7040; J7060; J7070